=== PATIENT | male | born 1985 | race African-American/Black ===

== ENCOUNTER 2017-05-20 08:30 | Emergency (ER) | payer OTHER ==
[~2017-05-20] VITALS: Ht 157.5 cm; Wt 70.5 kg
[2017-05-20 08:32] VITALS: Ht 157.5 cm; Wt 70.5 kg
--- NOTE | 2017-05-20 09:20 | ERD ---
ER Documentation Chief Complaint Date/Time DATE: 05/20/17 TIME: 09:16 Chief Complaint R LEG PAIN FROM KNEE TO ANKLE HPI 31 year old male comes in with right sided lateral ankle pain and Right lateral knee pain after a twisting injury last night. Patient describes achy pain that is diffuse, worse in movement and better at rest. Patient's pain has been controlled at home with ibuprofen. ROS All systems reviewed and are negative except as per history of present illness. Medications Home Meds Active Scripts Ibuprofen* (Motrin*) 600 Mg Tab, 600 MG PO Q6, #30 TAB Prov:REED DOAN PA-C 05/20/17 PMhx/Soc Medical and Surgical Hx: pt denies Medical Hx, pt denies Surgical Hx Hx Alcohol Use: No Hx Substance Use: No Hx Tobacco Use: No Smoking Status: Never smoker Physical Exam Vitals Vital Signs Date Time Temp Pulse Resp B/P Pulse Ox O2 Delivery O2 Flow Rate FiO2 05/20/17 08:32 98.5 80 18 164/100 99 Physical Exam General: Well-developed, well-nourished. The patient appears in no acute distress. HEENT: Head is normocephalic, atraumatic. No scleral icterus Neck: Supple. Nontender. Lungs: Clear to auscultation. Normal air movement. Heart: Regular rate and rhythm. S1 and S2 are normal. No murmurs, gallops, or rubs. Abdomen: Soft, nontender, nondistended. Bowel sounds are normoactive. Extremities: Right lateral ankle has soft tissue swelling, no bony deformities, ecchymosis, has full range of motion for flexion and extension. There is right lateral knee pain, no pain over the tibial tuberosity, patient is able to flex and straight leg raise. No tenderness along the anterior right lower leg. Neurologic: Alert and oriented 3. No focal deficits. Skin: Normal turgor. No rash or lesions. Results 24 hrs Current Medications Medications (Trade) Dose Ordered Sig/Carlos Route PRN Reason Start Time Stop Time Status Last Admin Dose Admin Ibuprofen (Motrin) 600 mg ONCE ONCE PO 05/20/17 09:30 05/20/17 09:31 DC 05/20/17 09:19 Acetaminophen (Tylenol Tab) 650 mg ONCE ONCE PO 05/20/17 09:30 05/20/17 09:31 DC 05/20/17 09:20 DIAGNOSTIC IMAGING REPORT Patient: MARIO BECKWITH : 1985 Age: 31 Sex: M MR #: [id number] DOS: 05/20/17903 Ordering MD: REED DOAN PA-C Location: [facility] Room/Bed: PROCEDURE: Right knee series. CLINICAL INDICATION: Right knee pain after injury TECHNIQUE: Three views of the right knee are available for review. COMPARISON: None available FINDINGS: There is normal mineralization and alignment of the bones of the right knee. No acute fracture or dislocation is identified. No joint effusion is seen. Overlying soft tissues are unremarkable. IMPRESSION: 1. Unremarkable right knee x-ray series. RPTAT: KK .Marty Galaviz MD, MD Date Time Electronically viewed and signed by .Marty Galaviz MD, MD on 2016 09:55 .B/ CC: REED DOAN DIAGNOSTIC IMAGING REPORT Patient: MARIO BECKWITH : 1985 Age: 31 Sex: M MR #: [id number] DOS: 05/20/17903 Ordering MD: REED DOAN PA-C Location: [facility] Room/Bed: PROCEDURE: Right ankle series. CLINICAL INDICATION: Right ankle pain after trauma TECHNIQUE: Three views of the right ankle are available for review COMPARISON: None available FINDINGS: There is normal mineralization and alignment of the bones of the right ankle. No acute fracture or dislocation is seen. Joint spaces are well maintained. No osteophytes or erosions are identified. No joint effusion is identified. The soft tissues are within normal limits. IMPRESSION: 1. Unremarkable right ankle x-ray series. RPTAT: KK .Marty Galaviz MD, MD Date Time Electronically viewed and signed by .Marty Galaviz MD, on 2016 09:56 .B/ CC: REED DOAN PA-C Procedures/MDM ED course: He was given ibuprofen for pain. Right knee was wrapped in Edwar bandage. Splint Assessment: Neurovascularly intact post splint placement with good fit. MDM: 31-year-old male comes in with a twisting injury, complaining of right lateral ankle pain, right lateral knee pain, Consistent with a right ankle sprain, right knee sprain. There are no signs of tendon rupture, Achilles tendon injury, fracture, neurovascular injury. He was advised to rest, ice, and take NSAIDS for pain. Departure Diagnosis: Primary Impression: Right ankle sprain Additional Impression: Right knee sprain Condition: Good REED DOAN PA-C May 20, 2017 09:20
[2017-05-20] MEDS ORDERED: ACETAMINOPHEN 325 MG TAB PO ONE (09:30)
[2017-05-20] MEDS ORDERED: IBUPROFEN 600 MG TAB PO ONE (09:30)
--- NOTE | 2017-05-20 09:55 | RADRPT ---
PROCEDURE: Right knee series. CLINICAL INDICATION: Right knee pain after injury TECHNIQUE: Three views of the right knee are available for review. COMPARISON: None available FINDINGS: There is normal mineralization and alignment of the bones of the right knee. No acute fracture or d islocation is identified. No joint effusion is seen. Overlying soft tissues are unremarkable. IMPRESSION: 1. Unremarkable right knee x-ray series. RPTAT: KK .Marty Galaviz MD, MD Date Time Electronically viewed and signed by .Marty Galaviz MD, on 05/20/2017 09:55 .B/
--- NOTE | 2017-05-20 09:56 | RADRPT ---
PROCEDURE: Right ankle series. CLINICAL INDICATION: Right ankle pain after trauma TECHNIQUE: Three views of the right ankle are available for review COMPARISON: None available FINDINGS: There is normal mineralization and alignment of the bones of the right ankle. No acute fracture or dislocation is seen. Joint spaces are well maintained. No osteophytes or erosions are identified. No joint effusion is identified. The soft tissues are within normal limits. IMPRESSION: 1. Unremarkable right ankle x-ray series. RPTAT: KK .Marty Galaviz MD, MD Date Time Electronically viewed and signed by .Marty Galaviz MD, on 05/20/2017 09:56 .B/
[2017-05-20] MEDS ORDERED: IBUP-1542 PO (10:01)
== END 2017-05-20 10:19 | disposition home or self-care (01) ==
LOC: FTE 08:30
DX: S93.401A Sprain of unspecified ligament of right ankle, initial encounter (principal); S83.91XA Sprain of unspecified site of right knee, initial encounter; X50.9XXA Other and unspecified overexertion or strenuous movements or postures, initial encounter; Y92.9 Unspecified place or not applicable
CPT/HCPCS: 73562